=== PATIENT | male | born 1990 | race Caucasian/White ===

== ENCOUNTER 2022-09-17 09:04 | Inpatient (IN) | payer MEDICAID, SELFPAY ==
[2022-09-17] VITALS (8 sets, daily range): BP systolic 115–126; BP diastolic 82–93; PULSE 85–135; RESP 16–18; TEMP 36.7–37.3; O2SAT 94–100; BMI 19.5; BMI 19.7
--- NOTE | 2022-09-17 09:18 | EX.ED.SAOD ---
HPI History of Present Illness Chief Complaint: Substance Abuse Detail of Chief Complaint: Requesting to detox from alcohol Informant: patient Narrative Narrative: Patient presents the emergency department requesting detox from alcohol. Patient last had a drink approximately 7 AM today. Patient normally drinks a malt liquor beer 25 ounce drinks that is about 14% alcohol and drinks 4 or 5 of these daily. Patient states that he was recently diagnosed with HIV 7 days ago. Patient in the past has tried to detox on his own and has had seizures. Patient has been having nausea and vomiting. Patient was seen at [facility] 2 days ago and was given IV fluids and was told he could not be admitted there and to go home and drink. He has been staying with his mother. Patient not currently on any HIV medications and has appointment next month with infectious disease specialist. Prior similar symptoms: Yes [facility] Medical History (Updated 09/17/22 @ 10:[address] Rafael Chris, DO) Alcohol abuse Anxiety Depression Allergy/AdvReac Type Severity Reaction Status Date / Time No Known Allergies Allergy Verified 09/17/22 09:07 Social History Smoking Status: Current every day smoker tobacco type: cigarettes ROS ROS ED ROS Narrative Feels anxious Review of Systems ROS Unobtainable: other Constitutional Constitutional ED: Reports lethargy; Denies chills, fever(s), sweats or weight loss Eyes Eyes: Denies blurry vision, change in vision or diplopia ENT ENT ED: Denies rhinorrhea or sore throat Cardiovascular Cardiovascular: Reports chest pain and racing heartbeat; Denies orthopnea Respiratory/Chest Respiratory/Chest: Denies cough, dyspnea, dyspnea on exertion, orthopnea or sputum Gastrointestinal Gastrointestinal: Reports nausea and vomiting; Denies abdominal pain or diarrhea Genitourinary Genitourinary ED: Denies dysuria, hematuria or urinary frequency Musculoskeletal Musculoskeletal: Denies arthralgias, back pain, myalgias or neck pain Integumentary Denies abscess, Abrasions or rash Neurologic Neurologic: Denies headache(s) or weakness Psychiatric Psychiatric: Denies anxiety, depression or suicidal thoughts Endocrine Endocrinology: Denies polydipsia, polyphagia or polyuria Hematologic/Lymphatic Hematologic/Lymphatic: Denies easy bleeding, easy bruising or lymphadenopathy Allergic/Immunologic Allergic/Immunologic ED: Denies mouth swelling, tongue swelling or urticaria EXAM Physical Exam Const Vital Signs: 09/17/22 09:05 Temperature 98.6 F Temperature Source Temporal Pulse Rate 135 H Respiratory Rate 18 Blood Pressure 126/89 H Blood Pressure Mean 101 Pulse Ox 99 Oxygen Delivery Method Room Air Positive well nourished and well developed General Appearance ED: well developed and NAD HEENT Reports TM's clear and moist mucous membranes normocephalic and atraumatic; Negative for trauma or tenderness Tympanic Membrane ED: Yes TM's clear Eyes PERRL and EOMs intact bilaterally General Eye ED: Negative for pale conjunctiva or scleral icterus Neck no lymphadenopathy, supple and no JVD General: Negative for tenderness Chest Wall inspection of chest normal and palpation of chest normal Chest: Negative for tenderness Resp normal respiratory effort and clear to auscultation bilaterally Effort and Inspection: Negative for respiratory distress or pain with movement Auscultation: Negative for rhonchi, wheezes or diminished lung sounds Cardio regular rhythm, S1 normal heart sound, S2 normal heart sound and no murmurs Rate: tachycardic Peripheral Pulses: pulses 2+ throughout GI normal to inspection, nondistended, normoactive bowel sounds, soft to palpation, non-tender, non-distended and no masses Back/Spine no CVA tenderness and no thoracic nor lumbar tenderness Extremity normal to inspection General Extremety ED: Negative for edema General Extremity: Negative for edema Neuro oriented x3, CN's II-XII intact bilaterally, no sensory deficits noted and gait normal Sensorium / Orientation: awake, alert, oriented to person, oriented to place and oriented to time Motor Exam: strength 5/5 throughout and strength abnormal Psych mental status grossly normal Skin no rashes or lesions noted and no wounds MDM MDM MDM Narrative Medical decision making narrative: IV line established on arrival. Patient was given Zofran 4 mg IV and Ativan 1 mg IV. Lab work-up showed normal H&H. Chemistries essentially unremarkable. He did have slight elevations in his alk phos at 153 and his AST was 45. Lipase was normal at 70. Case was discussed with hospitalist will evaluate patient for admission for alcohol withdrawal and request for alcohol detox. Lab Data Attestation: I reviewed the patient's lab results. Labs: Laboratory Results - last 24 hr 09/17/22 09/17/22 09:30 09:30 WBC 9.1 RBC 5.68 Hgb 16.0 Hct 46.4 MCV 81.7 MCH 28.2 MCHC 34.5 RDW Std Deviation 40.6 RDW Coeff of Micah 14.7 H Plt Count 288 MPV 9.3 Immature Gran % (Auto) 0.300 Neut % (Auto) 85.2 H Lymph % (Auto) 9.0 L [place] % (Auto) 4.9 Eos % (Auto) 0.3 Baso % (Auto) 0.3 Absolute Neuts (auto) 7.7 Absolute Lymphs (auto) 0.82 L Nucleated RBC % 0 Sodium 135 L Potassium 3.4 L Chloride 95 L Carbon Dioxide 25.0 Anion Gap 15 BUN 8 Creatinine 0.73 Estim Creat Clear Calc 128.07 Est GFR (MDRD) Af Amer 158 Est GFR (MDRD) Non-Af 131 BUN/Creatinine Ratio 11.0 Glucose 100 Calcium 8.2 L Total Bilirubin 0.70 AST 45 H ALT 51 Alkaline Phosphatase 153 H Total Protein 7.1 Albumin 2.9 L Globulin 4.2 Albumin/Globulin Ratio 0.7 L Lipase 70 L Discharge Plan Triage Chief Complaint: Substance Abuse ED Provider: Rafael Chris Dx/Rx/DC Orders Clinical Impression: Alcohol withdrawal, Tachycardia, HIV disease, Admitted to alcohol detoxification center Primary Care Provider: NOT,DEFINED Referrals: NOT,DEFINED [Primary Care Provider] - Disposition Disposition: Acute Care [facility]
[2022-09-17 09:42] LABS: Absolute Lymphocyte Count 0.82 X10^3/uL (0.83-4.51); Absolute Neutrophil Count 7.7 X10^3/uL (2.0-7.7); Basophil# 0.03 X10^3/uL; Basophil% 0.3 % (0-1); Eosinophil# 0.03 X10^3/uL; Eosinophils% 0.3 % (0-5); Hematocrit 46.4 % (40-54); Lymphocyte # 0.82 X10^3/ul (0.83-4.51); Mean Corp Hgb Conc 34.5 g/dL (32-36); Mean Corpuscular Hgb 28.2 pg (27.0-32.0); Mean Corpuscular Volume 81.7 fL (80-94); Mean Platelet Vol. 9.3 fl (6.2-12.0); Monocyte# 0.44 X10^3/uL; Monocyte% 4.9 % (0-10); NRBC Flagged by Analyzer 0 % (0-5); Neutrophil # 7.72 X10^3/uL (2.7-7.7); Neutrophil % 85.2 % (47-70); Platelet Count 288 K/mm3 (150-450); RBC Distribution Width CV 14.7 % (11.6-14.6); RBC Distribution Width SD 40.6 fl (35.1-43.9); Red Blood Count 5.68 M/mm3 (4.6-6.2); White Blood Count 9.1 K/mm3 (4.4-11.0)
[2022-09-17] MEDS: LORazepam 2 MG/ML Syringe 1 MG IV (09:43)
[2022-09-17] MEDS: 0.9% Normal Saline 1,000 ML 1000 ML IV (09:43)
[2022-09-17] MEDS: Ondansetron 4 MG/2 ML Vial IV (09:43)
[2022-09-17 09:55] LABS: ALB/GLOB Ratio 0.7 RATIO (0.9-2.4); AST(SGOT) 45 U/L (15-37); Alanine Aminotransfer ALT/SGPT 51 U/L (16-61); Albumin, Serum 2.9 g/dL (3.2-5.0); Alkaline Phosphatase 153 U/L (45-117); Anion Gap 15 (5-15); BUN 8 mg/dL (7-18); Calcium,Total 8.2 mg/dL (8.5-10.1); Chloride 95 mmol/L (98-107); Creatinine, Serum 0.73 mg/dL (0.70-1.30); EST Glomerular Filtration Rate 131 mL/min (>60); Est Glom Filt Rate - Afr Amer 158 mL/min (>60); Estimated Creatinine Clearance 128.07 ml/min; Globulin 4.2 g/dL (2.2-4.2); Glucose 100 mg/dL (74-106); Lipase 70 U/L (73-393); Potassium 3.4 mmol/L (3.5-5.1); Protein, Total 7.1 g/dL (6.4-8.2); Sodium Level 135 mmol/L (136-145)
--- NOTE | 2022-09-17 10:04 | NURSING ---
DR EDITA CONNELL
--- NOTE | 2022-09-17 10:10 | PCM.HP.STD ---
HPI - General General Date of Admission: 09/17/22 Date of Service: 09/17/22 Chief Complaint: Acute alcohol withdrawal syndrome HPI Narrative VIVIAN COLVIN, is a 32 M came to ED for with history of chronic alcohol use since age of 14 to get help for alcohol detox. Patient drinks mild liquor beer 25 ounce, 4 bottle daily with 14% of alcohol content. Patient has history of 2 alcohol withdrawal seizures. First 1 was about 5 years ago and second was about 3 years ago. Patient having mild nausea and tremors which got better with IV Ativan. Denies hallucination, suicidal ideation or delusions Over the weekend patient was in [place] ED and he was given IV fluid and stabilized and was discharged. Social history: Patient also takes legal marijuana. He smokes cigarettes about a pack per days, since age 12. Denies other substance use including opioids, methamphetamine, MDMA or bath salts. Family history: His father was also alcoholic. [facility] Medical History Alcohol abuse Anxiety Depression Allergy/AdvReac Type Severity Reaction Status Date / Time No Known Allergies Allergy Verified 09/17/22 09:07 Social History Smoking Status: Current every day smoker tobacco type: cigarettes ROS ROS Narrative Constitutional: Reports fatigue and weakness. No fever HEENT: Reports systems reviewed and no addt'l complaints, except as documented Respiratory/Chest: Denies chest pain, shortness of breath at rest or with exertion Gastrointestinal:. Denies prior history of denies coffee ground emesis. Denies history of stigmata of chronic alcohol disease including ascites,R HE or variceal bleed Genitourinary: Denies burning urination or new urinary tract symptoms Musculoskeletal: Mild arthralgia and myalgia. History of right knee effusion in the past. Neurologic: History of alcohol withdrawal seizure skin: No ulcer. No rash Endocrinology: Reports systems reviewed and no addt'l complaints, except as documented Hematologic/Lymphatic: Reports systems reviewed and no addt'l complaints, except as documented Rest 14 ROS are negative except as mentioned in HPI Vital Signs Vital Signs Vital Signs: 09/17/22 09:05 Temperature 98.6 F Temperature Source Temporal Pulse Rate 135 H Respiratory Rate 18 Blood Pressure 126/89 H Blood Pressure Mean 101 Pulse Ox 99 Oxygen Delivery Method Room Air Weight Weight: 140 lb Body Mass Index (BMI) 19.5 Physical Exam Narrative General: Alert, Oriented x3, Cooperative HEENT: Atraumatic, PERRLA, EOMI, Normocephalic Oral: Oral mucosa dry. No Gingival or Mucosal Lesions/ Ulcerations Neck: Supple, No JVD, Negative Carotid Bruits Lungs: Air entry equal in bilateral lung bases. No crepitation/rhonchi Cardiovascular: Regular rate, Regular Rhythm, Normal S1, Normal S2, No murmurs Abdomen: Bowel Sounds Present, Soft, Non Tender, Non-Distended : No renal angle tenderness. No suprapubic tenderness. Extremities: No edema, Capillary Refill Less than 3 Seconds Skin: No rashes, No breakdown Musculoskeletal: No knee joint effusion. ROM intact. No Tenderness to Palpation of Joints or Extremities Neurological: Cranial nerves II-XII grossly intact, DTR 2+/4 and Symmetrical, Neuro grossly intact Psych/Mental Status: Flat affect. Results Lab / Micro Data Result Diagrams: 09/17/22 09:30 09/17/22 09:30 Labs: Laboratory Results - last 24 hr 09/17/22 09:30: WBC 9.1, RBC 5.68, Hgb 16.0, Hct 46.4, MCV 81.7, MCH 28.2, MCHC 34.5, RDW Std Deviation 40.6, RDW Coeff of Micah 14.7 H, Plt Count 288, MPV 9.3, Immature Gran % (Auto) 0.300, Neut % (Auto) 85.2 H, Lymph % (Auto) 9.0 L, [place] % (Auto) 4.9, Eos % (Auto) 0.3, Baso % (Auto) 0.3, Absolute Neuts (auto) 7.7, Absolute Lymphs (auto) 0.82 L, Nucleated RBC % 0 09/17/22 09:30: Sodium 135 L, Potassium 3.4 L, Chloride 95 L, Carbon Dioxide 25.0, Anion Gap 15, BUN 8, Creatinine 0.73, Estim Creat Clear Calc 128.07, Est GFR (MDRD) Af Amer 158, Est GFR (MDRD) Non-Af 131, BUN/Creatinine Ratio 11.0, Glucose 100, Calcium 8.2 L, Total Bilirubin 0.70, AST 45 H, ALT 51, Alkaline Phosphatase 153 H, Total Protein 7.1, Albumin 2.9 L, Globulin 4.2, Albumin/Globulin Ratio 0.7 L, Lipase 70 L Assessment & Plan Assessment/Plan (1) Alcohol withdrawal: PLAN: Plan This is 32-year-old question gentleman admitted with acute alcohol withdrawal syndrome. 1. Acute alcohol withdrawal syndrome with history of chronic alcohol use, dependence and tolerance: Patient is being admitted on MedSurg floor but currently in ED. On phenobarbitalalong with Other adjunctive medication to control the symptoms of alcohol withdrawal. IV fluid Ringer lactate 1 L. ANTON scoring. 2. History of alcohol withdrawal seizure in the past: Last seizure was 3 years ago. 3. Recent diagnosis of HIV: Patient recently diagnosed with HIV 7 days ago. Not currently on medications. 4. Chronic smoker: On nicotine patch. 5. Anxiety and depression: Stable. VT prophylaxis, low risk. Early ambulation encouraged. Charges/Coding Visit Charges Inpatient E&M: 42521 Init Hosp L3
--- NOTE | 2022-09-17 10:20 | NURSING ---
MED SURG [facility] ETOH WITHDRAWAL, TACHYCARDIA, REQUEST FOR ALCOHOL DETOX
--- NOTE | 2022-09-17 10:20 | NURSING ---
MS ED 5
[2022-09-17 10:45] LABS: Amphetamine Urine VISTA NEGATIVE (<1000 ng/mL); Barbiturate Urine VISTA NEGATIVE (< 200 ng/mL); Benzodiazepine Urine VISTA NEGATIVE (< 200 ng/mL); Cocaine Urine VISTA NEGATIVE (< 300 ng/mL); Ecstacy Urine VISTA NEGATIVE (< 500 ng/mL); Methadone Urine VISTA NEGATIVE (< 300 ng/mL); PCP Urine VISTA NEGATIVE (< 25 ng/mL); THC Urine VISTA POSITIVE (< 50 ng/mL); Vista UDS pH Range 6
[2022-09-17 11:17] LABS: Vitamin B12 241 pg/mL (211-911)
[2022-09-17 11:21] LABS: Phosphorus 3.6 mg/dL (2.5-4.9)
[2022-09-17 11:45] LABS: International Normalized Ratio 1.2; Prothrombin Time (Protime)PT. 14.4 SECONDS (11.7-14.9)
[2022-09-17] MEDS: Lactated Ringers 1,000 ML 125 ML IV (12:45)
--- NOTE | 2022-09-17 13:01 | CM.ED ---
MARY note Referral Reason: RAMP program Referral Source: Case find SW met with patient and patient's mother and introduced herself as well as role as social studies department chair at [facility]. SW requested permission to speak to patient with guest present, patient agreed. SW inquired about patient's knowledge of the detox program as well as substances he would be detoxing from. Patient stated he was detoxing from alcohol and his last drink was that morning, explaining he needed the drink in order to not get sick on the ride to the hospital. Patient also explained he stopped taking his prescribed medications 2 weeks ago due to his drinking, explaining when he drinks while on his medications he gets angry. Patient reported he is prescribed medication from Dr. Tolentino from [facility], however, if he is unable to meet with that psychiatrist, patient explained his PCP will also prescribe those medications. The following are the medications patient reports he is currently prescribed: Lamictal, Latuda, Lexapro, Vistaril and trazodone. SW reviewed rules associated with participating in the RAMP program including no outside items or phone. Patient reported an understanding and stated he also reviewed the information with his nurse. Patient reports no other needs at this time. SW reains available if needs arise. MARY contacted Juve, Addictions Therapist with [facility] to inform her of the patient being admitting for the RAMP program. SW provided information regarding patient's substance use as well as explained patient stated he stopped taking his prescribed medications. Ailyn Menon MSW, JANNETH
[2022-09-17] MEDS: Phenobarbital 32.4 MG Tablet 97.2 MG PO ×3 (14:07→23:01)
[2022-09-17 14:58] LABS: HIV - WCH Preliminary Reactive (Nonreactive); Hepatitis B Surface Antibody Reactive; Syphilis Antibodies Reactive
[2022-09-17] MEDS: NYSTATIN 500,000 UNIT/5 ML UDC 500000 UNIT PO ×3 (15:35→23:02)
[2022-09-17] MEDS: Gabapentin 300 MG Capsule PO (18:32)
[2022-09-17 22:22] LABS: Chlamydia Trachomatis by PCR Negative (Negative); Neisserai gonorrhoeae by PCR Negative (Negative); Probe Check PASS; Sample Adequacy Control PASS; Specimen Processing Control PASS
[2022-09-18 02:00] VITALS: BP 128/94; PULSE 89; RESP 16; TEMP 36.3; O2SAT 100
[2022-09-18] MEDS: Phenobarbital 32.4 MG Tablet 97.2 MG PO ×4 (02:19→14:32)
[2022-09-18 06:03] VITALS: BP 118/90; PULSE 88; RESP 16; TEMP 36.8; O2SAT 98
--- NOTE | 2022-09-18 07:25 | NURSING ---
Emergency documemtation
[2022-09-18 08:52] VITALS: BP 127/91; PULSE 91; RESP 18; TEMP 36.9; O2SAT 99
[2022-09-18] MEDS: Folic Acid 1 MG Tablet PO (09:05)
[2022-09-18] MEDS: Gabapentin 300 MG Capsule PO (09:05)
[2022-09-18] MEDS: Thiamine Hydrochloride 100 MG Tablet PO (09:05)
[2022-09-18] MEDS: NYSTATIN 500,000 UNIT/5 ML UDC 500000 UNIT PO ×2 (10:22→14:32)
--- NOTE | 2022-09-18 10:58 | DCINST_ITS ---
Discharge Instructions Diet Discharge Diet: No restrictions Activity Discharge Activity: Return to Normal Activity and May Not Drive Dressing / Incision Call your doctor if you observe: Fever of 101 or Higher, Coldness, Increased Pain, Numbness or Tingling, Change in Color, Inability to urinate, Inability to have a bowel movement, Using more than 1 pad per hour, Shortness of breath, Dizziness, Fainting spells, Swelling in the ankles, Chest pain, Prolonged hiccupping, Increased palpitations (irregular heartbeat), Calf discomfort and Uncontrolled pain Follow Up Care Test Results: Test results from this visit will be discussed in further detail at your follow- up appointment, if applicable. Discharge Plan Admission Admit Date/Time: 09/17/22 10:05 Primary Reason for Your Visit: Acute alcohol withdrawal syndrome HIV new diagnosis 7 days ago Attending Provider: Ean Bourne Primary Care Provider: AQUILES ESTRADA Consulting Providers: Bert Tamez Discharge Orders/Prescriptions Prescriptions: New nicotine (polacrilex) 2 mg Gum 2 mg PO Q2H PRN PRN (Reason: Nicotine Craving) Qty: 0 0RF Rx Instructions: Enpw-yel-gymcvol. thiamine HCl (vitamin B1) [Vitamin B-1] 100 mg Tablet 100 mg PO DAILYCM Qty: 30 0RF nicotine 21 mg/24 hr Patch 24 Hour 21 mg transdermal DAILY Qty: 30 0RF folic acid 1 mg Tablet 1 mg PO DAILY@0800 Qty: 30 0RF Referrals / Follow Up: AQUILES ESTRADA [Other] Bert Tamez MD [Med Staff - Active Staff] - Within 1 Month (For HIV medication) NOT,DEFINED [Non-Staff] - Disposition Disposition (needs filled in before D/C Order can be placed): Home, Self Care
[2022-09-18 12:31] VITALS: BP 127/90; PULSE 101; RESP 18; TEMP 36.7; O2SAT 100
[2022-09-18] MEDS: Nicotine Polacrilex 2 MG GUM PO (12:33)
[2022-09-18] MEDS: hydrOXYzine PAM 25 MG Capsule 50 MG PO (12:33)
--- NOTE | 2022-09-18 13:03 | PCM.DC.SUM ---
Providers Date of Admission: 09/17/22 Date of Discharge: 09/18/22 Primary Care Physician: AQUILES ESTRADA Consultations 09/17/22 13:19 Consult: Infectious Disease Routine Consulting Provider: Bert Tamez Reason for Consult: HIV new diagnosis, not on Rx EMERGENT Consult: No MD Notified: Yes Date Notified: 09/17/22 Time Notified: 13:20 Method of Notification: Verbal Reason For Visit: ALCOHOL USE Diagnosis Discharge Diagnosis (1) Alcohol withdrawal: Status: Acute Code(s): F10.939 - Alcohol use, unspecified with withdrawal, unspecified Plan This is 32-year-old question gentleman admitted with acute alcohol withdrawal syndrome. 1. Acute alcohol withdrawal syndrome with history of chronic alcohol use, dependence and tolerance: Patient is being admitted on MedSurg floor but currently in ED. On phenobarbitalalong with Other adjunctive medication to control the symptoms of alcohol withdrawal. IV fluid Ringer lactate 1 L. ANTON scoring. 09/18: Patient does not have alcohol withdrawal syndrome. [employer] network manager Juve advised discharge home and advised follow-up as an outpatient for chronic alcohol use dependence disorder. Follow-up as an outpatient. CIWA score 1. 2. History of alcohol withdrawal seizure in the past: Last seizure was 3 years ago. 3. Recent diagnosis of HIV: Patient recently diagnosed with HIV 7 days ago. Not currently on medications. 09/18: HIV 1 and 2 antibody preliminarily reactive. Patient also had syphilis positive and was told that he has syphilis. Gonorrhea and Chlamydia PCR negative. Hepatitis panel are pending. Hep B surface antibody reactive. CD4 cell counting, TB QuantiFERON test pending. HIV RNA viral count pending. Discussed with ID yesterday and and he will see the patient as consult. Patient has ID in [place]. Advised follow-up ID regularly for management of HIV and syphilis 4. Chronic smoker: On nicotine patch. Patient is discharged on nicotine patch and nicotine gum as needed. 5. Anxiety and depression: Stable. VT prophylaxis, low risk. Early ambulation encouraged. Discharge medication reconciliation done. Discharge follow-up instructions completed. Discharge process discussed with the patient and all questions were answered to patient's satisfaction. Total time spent, exact 35 minutes on discharge meds reconciliation, examination, coordination of care with nurses and ancillary staff, review of imaging and blood test and discussion with the patient on follow-up instructions. Medications at Discharge Home Medications cyanocobalamin (vitamin B-12) 1,000 mcg tablet 1,000 mcg PO DAILY #30 tabs 09/18/22 folic acid 1 mg tablet 1 mg PO DAILY@0800 #30 tabs 09/18/22 nicotine (polacrilex) 2 mg gum 2 mg PO Q2H PRN PRN Nicotine Craving #0 ea 09/18/22 nicotine 21 mg/24 hr daily transdermal patch 21 mg transdermal DAILY #30 ea 09/18/22 thiamine HCl (vitamin B1) 100 mg tablet (Vitamin B-1) 100 mg PO DAILYCM #30 tabs 09/18/22 Weight / BMI Weight Weight: 141 lb 8.588 oz Body Mass Index (BMI) 19.7 ABG / Lab / Microbiology Data Result Diagrams: 09/17/22 09:30 09/17/22 09:30 Laboratory: Laboratory Results - last 24 hr 09/17/22 09:30: HIV 1&2 Antibody Preliminary Reactive H 09/17/22 09:30: Syphilis Total Ab Reactive, Hep Bs Antibody Reactive 09/17/22 20:25: Chlam trachomat DNA PCR Negative, N.gonorrhoeae DNA (PCR) Negative D/C Instructions Discharge Diet: No restrictions Call your doctor if you observe: Fever of 101 or Higher, Coldness, Increased Pain, Numbness or Tingling, Change in Color, Inability to urinate, Inability to have a bowel movement, Using more than 1 pad per hour, Shortness of breath, Dizziness, Fainting spells, Swelling in the ankles, Chest pain, Prolonged hiccupping, Increased palpitations (irregular heartbeat), Calf discomfort and Uncontrolled pain Meaningful Use Info Meaningful Use Diagnoses (Choose all that apply): None applicable Discharge Plan Admission Admit Date/Time: 09/17/22 10:05 Primary Reason for Your Visit: Acute alcohol withdrawal syndrome HIV new diagnosis 7 days ago Attending Provider: Ean Bourne Primary Care Provider: AQUILES ESTRADA Consulting Providers: Bert Tamez Discharge Orders/Prescriptions Prescriptions: New nicotine (polacrilex) 2 mg Gum 2 mg PO Q2H PRN PRN (Reason: Nicotine Craving) Qty: 0 0RF Rx Instructions: Qdtk-zky-rjyxpch. thiamine HCl (vitamin B1) [Vitamin B-1] 100 mg Tablet 100 mg PO DAILYCM Qty: 30 0RF nicotine 21 mg/24 hr Patch 24 Hour 21 mg transdermal DAILY Qty: 30 0RF folic acid 1 mg Tablet 1 mg PO DAILY@0800 Qty: 30 0RF cyanocobalamin (vitamin B-12) 1,000 mcg tablet 1,000 mcg PO DAILY Qty: 30 2RF Referrals / Follow Up: AQUILES ESTRADA [Other] Bert Tamez MD [Med Staff - Active Staff] - Within 1 Month (For HIV medication) NOT,DEFINED [Non-Staff] - Disposition Disposition (needs filled in before D/C Order can be placed): Home, Self Care Charges/Coding Addendum Addendum: Patient was admitted with alcohol withdrawal syndrome and was expected to stay discharged on the fourth day. His CIWA score improved rapidly. Patient was admitted as inpatient but was discharged because of sooner recovery than expected at time of admission. Visit Charges Inpatient E&M: 48439 Disch Hosp
--- NOTE | 2022-09-18 14:33 | NURSING ---
spoke with pt mother- updated on discharge order, states she will be over to pick him up
[2022-09-19 05:07] LABS: HEPATITIS B SURFACE AG Negative (Negative); Hep C Antibodies <0.1 s/co ratio (0.0-0.9); Hepatitis A IgM Antibody Negative (Negative); Hepatitis B Core AB IgM Negative (Negative)
[2022-09-19 14:08] LABS: QNTFERON TB Mitogen Value > 10.00 IU/mL (.); QNTFERON TB Nil Value 0.04 IU/mL (.); QNTFERON TB1+ Ag Value 0.04 IU/mL (.); QNTFERON TB2+ Ag Value 0.04 IU/mL (.)
[2022-09-19 15:08] LABS: Absolute CD4 Helper 192 /uL (359-1519); Absolute CD4 Helper 225 /uL (359-1519); Basophils (Absolute) 0 x10E3/uL (0.0-0.2); CD4/CD8 Ratio 0.28 (0.92-3.72); Eosinophils 0 % (Not Estab.); Eosinophils (Absolute) 0 x10E3/uL (0.0-0.4); Hematocrit 43.7 % (37.5-51.0); Hematocrit 44.9 % (37.5-51.0); Hemoglobin 14.4 g/dL (13.0-17.7); Hemoglobin 14.5 g/dL (13.0-17.7); Immature Granulocytes 1 % (Not Estab.); Immature Granulocytes Absolute 0 x10E3/uL (0.0-0.1); Immature Granulocytes Absolute 0.1 x10E3/uL (0.0-0.1); Lymphs 21 % (Not Estab.); Lymphs 22 % (Not Estab.); Lymphs (Absolute) 1.3 x10E3/uL (0.7-3.1); Lymphs (Absolute) 1.5 x10E3/uL (0.7-3.1); MCH 28.2 pg (26.6-33.0); MCH 28.6 pg (26.6-33.0); MCHC 32.3 g/dL (31.5-35.7); MCV 87 fL (79-97); Monocytes 4 % (Not Estab.); Monocytes 5 % (Not Estab.); Monocytes (Absolute) 0.3 x10E3/uL (0.1-0.9); Neutrophils 72 % (Not Estab.); Neutrophils 73 % (Not Estab.); Neutrophils (Absolute) 4.7 x10E3/uL (1.4-7.0); Neutrophils (Absolute) 4.9 x10E3/uL (1.4-7.0); Percent % CD4 Pos. Lymph. 14.8 % (30.8-58.5); Percent % CD8 Pos. Lymph. 53.7 % (12.0-35.5); Platelets 241 x10E3/uL (150-450); Platelets 249 x10E3/uL (150-450); RBC Count 5.04 x10E6/uL (4.14-5.80); RBC Count 5.15 x10E6/uL (4.14-5.80); RDW 15.2 % (11.6-15.4); WBC Count 6.5 x10E3/uL (3.4-10.8); WBC Count 6.7 x10E3/uL (3.4-10.8)
[2022-09-19 17:09] LABS: QNTIFERON TB Positive Criteria Negative (Negative)
[2022-09-21 20:15] LABS: HIV-1 RNA by PCR, Quant. 57100 copies/mL (.); LOG10 HIV-1 RNA 4.757 (.)
== END 2022-09-18 16:00 | disposition home or self-care (01) | DRG 775 ==
LOC: ED 10:12 → MS3 10:17
PROVIDERS: Internal Medicine Infectious Disease; Admitting Provider Internal Medicine; Emergency Provider Emergency Medicine; Visit Provider Internal Medicine
DX: F10.239 Alcohol dependence with withdrawal, unspecified (principal); B20 Human immunodeficiency virus [HIV] disease; F17.210 Nicotine dependence, cigarettes, uncomplicated; F12.90 Cannabis use, unspecified, uncomplicated; F41.9 Anxiety disorder, unspecified; F32.A Depression, unspecified; Y90.9 Presence of alcohol in blood, level not specified
CPT/HCPCS: 36415; 80053; 80074; 80307; 82077; 82607; 82746; 83690; 83735; 84100; 85025; 85610; 86360; 86361; 86480; 86703; 86706; 86780; 87491; 87536; 87591; 99285; J7030; J7120; A4216; J2405